=== PATIENT | female | born 2000 | race Caucasian/White ===

== ENCOUNTER 2021-09-16 10:09 | Emergency (ER) | payer OTHER, SELFPAY ==
--- NOTE | 2021-09-16 10:14 | ED.URI ---
HPI - URI/Sore Throat General Chief Complaint: Upper Respiratory Infection Stated Complaint: cough,chest feels heavy Time Seen by Provider: 09/16/21 10:14 Source: patient and RN notes reviewed Mode of arrival: ambulatory Limitations: no limitations History of Present Illness HPI Narrative: 20-year-old female presents to the [facility] with complaints of productive cough for 2 days sinus congestion for 3 days. States that she has taken DayQuil with minimal relief. Reports a low-grade fever of 100 last night. Patient reports that it is worse at night. States she has a lot of coughing in the morning and it gets better throughout the day. Denies chest pain or abdominal pain. No nausea vomiting diarrhea. MD elicited complaint: cough Related Data Home Medications Medication Instructions Recorded Confirmed omeprazole 40 mg PO DAILY 09/16/21 09/16/21 Allergies Allergy/AdvReac Type Severity Reaction Status Date / Time No Known Allergies Allergy Verified 09/16/21 10:20 Review of Systems Review of Systems: All systems reviewed & are unremarkable except as noted in HPI and below Constitutional: Constitutional: Reports no additional constitutional complaints, Denies chills and Denies fever(s) Eyes: Eyes: Reports no additional eye complaints ENT: Reports as per HPI and Reports nasal congestion Cardiovascular: Cardiovascular: Reports no additional cardiovascular complaints and Denies chest pain Respiratory: Respiratory: Reports as per HPI and Reports cough Gastrointestinal: Gastrointestinal: Reports no additional gastrointestinal complaints Musculoskeletal: Musculoskeletal: Reports no additional musculoskeletal complaints Integumentary/Breasts: Skin/Breast: Reports system reviewed and no additional complaints, except as docu Neurologic: Reports system reviewed and no additional complaints, except as documented Psychiatric: Psychiatric: Reports no additional psychiatric complaints Allergic/Immunologic: Allergic/Immunologic: Reports no additional allergic/immunologic complaints FOR[facility]LY [facility] Past Medical History Medical History (Updated 09/16/21 @ 10:50 by Kym Demarco) H/O gastroesophageal reflux (GERD) Surgical History Surgical History (Updated 09/16/21 @ 10:50 by Kym Demarco) History of placement of ear tubes Social History Social History (Updated 09/16/21 @ 10:50 by Kym Demarco) Gender identity (if verbalized by the patient): Female Comments At the time of my signature, I reviewed and agree with the nursing past medical, surgical, social, and family history. There is no relevant family history pertinent to the patient complaint. Exam Const: General: healthy appearing, no acute distress and alert; No ill appearing Nutritional Appearance: well nourished Orientation/consciousness: patient oriented x3 Limitations: no limitations HENMT: Head: normal to inspection Ears: external ears normal, TM's normal bilaterally (Scars from previous tubes noted), EAC's normal and mastoids normal General nose exam: Normal external nose present, Abnormal mucous membranes and turbinates present boggy bilateral; not erythematous and Nasal discharge present clear Face and sinus: sinus tenderness frontal and maxillary Mouth: Yes Normal oral and palatal mucosa present Throat: tonsils normal, uvula midline, postnasal drainage and no uvular edema Eyes: Pupils: Equal, round and reactive pupils present Neck: Neck: normal visual inspection, no lymphadenopathy and no meningeal signs Chest: Chest palpation & inspection: normal inspection of the chest Resp: Effort & Inspection: normal respiratory effort and no use of accessory muscles Auscultation: clear to auscultation bilaterally, no crackles, no rales, no rhonchi and no wheezes Cardio: Rate: regular rate Rhythm: regular rhythm Back/Spine/Pelvis: Back: no CVA tenderness Skin: General skin exam: normal color Rashes: no rashes Wounds: no wounds Neuro: General: pa
[2021-09-16 10:22] VITALS: BP 116/71; PULSE 88; RESP 16; TEMP 36.3; O2SAT 100
== END 2021-09-16 10:40 | disposition home or self-care (01) ==
PROVIDERS: Emergency Provider Nurse Practitioner; PCP Nurse Practitioner Adult Health
DX: J40 Bronchitis, not specified as acute or chronic (principal); J01.40 Acute pansinusitis, unspecified; K21.9 Gastro-esophageal reflux disease without esophagitis
CPT/HCPCS: 99203; G0463